=== PATIENT | male | born 1955 | race Two or more races ===

== ENCOUNTER 2023-09-19 02:50 | Emergency (ER) | payer MEDICARE, OTHER ==
[~2023-09-19] VITALS: Ht 162.6 cm; Wt 56.7 kg
[2023-09-19 03:09] VITALS: TEMP 98
[2023-09-19 07:04] VITALS: BP 124/74; O2SAT 98
== END 2023-09-19 07:13 ==
LOC: ER 02:53
DX: S00.81XA Abrasion of other part of head, initial encounter (principal); G93.49 Other encephalopathy; G20.A1 Parkinson's disease without dyskinesia, without mention of fluctuations; F02.80 Dementia in other diseases classified elsewhere, unspecified severity, without behavioral disturbance, psychotic disturbance, mood disturbance, and anxiety; F32.A Depression, unspecified; Z88.0 Allergy status to penicillin; W18.30XA Fall on same level, unspecified, initial encounter; Y93.89 Activity, other specified; Y92.89 Other specified places as the place of occurrence of the external cause; Y99.8 Other external cause status
CPT/HCPCS: 70450-TC

== ENCOUNTER 2024-01-09 09:35 | Emergency (ER) | payer MEDICARE, OTHER ==
[~2024-01-09] VITALS: Ht 152.4 cm; Wt 44.9 kg
[2024-01-09 09:39] VITALS: TEMP 98.2
[2024-01-09] MEDS ORDERED: TDAP [DIPH/PERTUSSIS/TET] 0.5 ML VIAL IM ONE (10:18)
[2024-01-09] MEDS: TDAP [DIPH/PERTUSSIS/TET] 0.5 ML VIAL IM ONE (10:28)
[2024-01-09 16:04] VITALS: BP 110/75; O2SAT 98
== END 2024-01-09 16:05 | disposition home or self-care (01) ==
LOC: ER 09:37
DX: S01.81XA Laceration without foreign body of other part of head, initial encounter (principal); R94.31 Abnormal electrocardiogram [ECG] [EKG]; G20.A1 Parkinson's disease without dyskinesia, without mention of fluctuations; F02.80 Dementia in other diseases classified elsewhere, unspecified severity, without behavioral disturbance, psychotic disturbance, mood disturbance, and anxiety; F32.A Depression, unspecified; Z88.0 Allergy status to penicillin; W01.0XXA Fall on same level from slipping, tripping and stumbling without subsequent striking against object, initial encounter; Y93.89 Activity, other specified; Y92.89 Other specified places as the place of occurrence of the external cause; Y99.8 Other external cause status
CPT/HCPCS: 70450-TC; 72125-TC; 82962-TC; 90715